=== PATIENT | male | born 1975 | race Caucasian/White ===

== ENCOUNTER 2018-09-23 21:23 | Observation (INO) | payer OTHER, SELFPAY ==
[2018-09-23 21:35] VITALS: BP 162/101; PULSE 87; RESP 18; TEMP 36.2; O2SAT 97
[2018-09-23 22:29] LABS: Alanine Aminotransferase 64 IU/L (21-72); Albumin 4.3 g/dL (3.5-5.0); Albumin Globulin Ratio 1.4 (1.0-2.8); Alkaline Phosphatase 56 U/L (38-126); Aspartate Aminotransferase 37 IU/L (17-59); BUN Creatinine Ratio 13.3 (6-22); Bilirubin Total 0.8 mg/dL (0.2-1.3); Blood Urea Nitrogen 12 mg/dL (9-20); Calcium 8.8 mg/dL (8.4-10.2); Carbon Dioxide 24 mmol/L (22-32); Chloride 104 mmol/L (98-107); Estimated Glomerular Filt Rate > 60.0 mL/min (>60); Glucose 93 mg/dL (70-100); HEMOLYSIS < 15 (0-50); Lipase 131 U/L (23-300); Potassium 3.8 mmol/L (3.4-5.1); Sodium 138 mmol/L (137-145); Total Protein 7.3 g/dL (6.3-8.2)
[2018-09-23 22:54] LABS: Add Manual Diff / Slide Review NO; Basophils Absolute Auto 100 /uL (0-100); Basophils Percent Auto 0.4 % (0-2); Eosinophils Absolute Auto 300 /uL (0-450); Eosinophils Percent Auto 2.3 % (2-4); Hematocrit 50.9 % (41-53); Hemoglobin 17.4 g/dL (13.5-17.5); Lymphocytes Absolute Auto 1800 /uL (1100-4500); Lymphocytes Percent Auto 13.9 % (25-40); Mean Corpuscular HGB Conc 34.3 % (30-36); Mean Corpuscular Hemoglobin 33.5 PG (26-34); Mean Corpuscular Volume 97.8 fL (80-100); Monocytes Absolute Auto 1000 /uL (0-900); Monocytes Percent Auto 7.3 % (3-14); Neutrophils Absolute Auto 10000 /uL (1500-7000); Neutrophils Percent Auto 76.1 % (50-75); Platelet Count 156 X10^3/uL (150-400); Red Cell Distribution Width 12.4 % (11.6-14.8); White Blood Cell Count 13.1 X10^3/uL (4.5-11.0)
[2018-09-23 23:57] VITALS: BP 156/89; PULSE 88; RESP 17; O2SAT 98
[2018-09-24] VITALS (15 sets, daily range): BP systolic 109–138; BP diastolic 66–92; PULSE 12–98; RESP 7–20; TEMP 36.6–37.9; O2SAT 91–100; BMI 28.8
--- NOTE | 2018-09-24 | PATH_ITS ---
[facility] Accession Number: [id number] . 01 Material submitted: . APPENDIX . 02 Diagnosis: Appendix, Laparoscopic Appendectomy: Acute appendicitis and serositis. MRV/09/27/2018 . 02 Electronically signed: . Nelly Lara MD, Pathologist NPI- [id number] . 01 Gross description: . Received in formalin, labeled appendix, is an intact appendix (length-4.3 cm, diameter-1.0 cm) with elena smooth shiny serosa, attached mesoappendix (up to 1.5 cm in depth) and an opened resection margin. The lumen contains clear colorless fluid. The wall is up to 0.5 cm thick. The tip appears to be perforated. No nodules, masses or lesions are identified. The resection margin is inked black. Section code: (A1) resection margin en face and three additional serial sections; (A2) one-half of the bivalved tip. ([id number]) /MRV . 02 Pathologist provided ICD-10: K35.80 . 02 CPT . 816491 Performed at: 01 [facility] [address] [place] [address], [place], [place] [id number] MD Antonino Guerra MD Phone: [phone] Performed at: 02 [facility] [address] [place], [place] [id number] MD Taryn Hernandez MD Phone: [phone]
[2018-09-24] MEDS: SODIUM CHLORIDE 0.9% 1,000 ML 150 ML IV ×2 (00:17→09:00)
--- NOTE | 2018-09-24 00:32 | DI.CT.S_ITS ---
PROCEDURE: CT ABDOMEN PELVIS W CON INDICATIONS: Right lower quadrant abdominal pain TECHNIQUE: After the administration of intravenous contrast, 5 mm thick sections acquired from the diaphragm to the symphysis. 5 mm coronal and sagittal reformats were acquired. For radiation dose reduction, the following was used: automated exposure control, adjustment of mA and/or kV according to patient size. COMPARISON: None. FINDINGS: Image quality: Excellent. ABDOMEN: Lung bases: Lung bases are clear. Heart size is normal. Solid organs: Liver is normal in size and enhancement. Gallbladder contains a 3 mm hyperdense focus which likely represents a small gallstone. No CT evidence for acute cholecystitis. Biliary system is non dilated. Pancreas enhances normally. Spleen is normal in size and enhancement. No adrenal nodules. Kidneys demonstrate normal size and enhancement, without hydronephrosis. A few small bilateral renal hypodensities are too small to accurately characterize but likely represent renal cysts. Peritoneum and bowel: Bowel loops demonstrate normal wall thickness and caliber. No free fluid or air. The appendix is dilated up to 12 mm in diameter with associated hyperemia/wall thickening and periappendiceal stranding. No evidence for perforation or abscess formation. Nodes and vessels: No retroperitoneal or mesenteric adenopathy by size criteria. Aorta and inferior vena cava are normal in size. Miscellaneous: No ventral hernias. PELVIS: Genitourinary: Bladder wall thickness is normal. Miscellaneous: No inguinal hernias or adenopathy. Bones: No suspicious bony lesions. No vertebral body compression fractures. IMPRESSION: 1. Acute appendicitis without complication. 2. Cholelithiasis without CT evidence for acute cholecystitis. Findings are concordant with preliminary radiology report. Acute findings were discussed with Nelly Meade M.D. on 09/24/2018 at 0129 hrs [place] standard time. Dictated by: Cristo Puente M.D. on 09/24/2018 at 8:02 Approved by: Cristo Puente M.D. on 09/24/2018 at 8:16
--- NOTE | 2018-09-24 00:35 | ED_ITS ---
HPI - Abdominal Pain General Chief Complaint: Abdominal Pain Stated Complaint: ABD BLOATING, CRAMPING, DIARRHEA Time Seen by Provider: 09/24/18 00:02 Source: patient Mode of arrival: ambulatory Limitations: no limitations History of Present Illness HPI narrative: Patient complains of right lower quadrant abdominal pain that has gone on throughout the day today. Patient states he has had intermittent diarrhea, well. Patient denies fevers. He denies nausea or vomiting. He states his appetite has been somewhat decreased. No urinary symptoms. No back pain. Patient is otherwise healthy except for hypertension, which he states is well controlled with medication. Patient has exposed to anybody else who has been sick. No complaints this. States his pain a 7 of. Movement makes it worse, and lying still makes it better. Patient has no history of appendectomy. No change in bowel habits. Related Data Home Medications Medication Instructions Recorded Confirmed lisinopril 20 mg PO DAILY 09/24/18 09/24/18 Allergies Allergy/AdvReac Type Severity Reaction Status Date / Time shellfish derived Allergy Hallucinati Verified 09/24/18 13:34 ng Review of Systems Constitutional Denies chills, Denies fever(s), Denies lethargy and Denies weakness Eyes Denies change in vision, Denies eye discharge, Denies irritation and Denies loss of vision ENT Ears, Nose, Mouth, and Throat: Denies change in voice, Denies neck pain and Denies sore throat Cardiovascular Denies chest pain, Denies irregular heart rhythm, Denies lightheadedness, Denies palpitations, Denies dyspnea, Denies dyspnea on exertion and Denies orthopnea Respiratory Denies cough, Denies dyspnea, Denies dyspnea on exertion and Denies wheezing Gastrointestinal Gastrointestinal: Reports abdominal pain ( Right lower quadrant), Denies change in bowel habits, Denies diarrhea, Denies nausea and Denies vomiting Genitourinary Denies hematuria, Denies flank pain, Denies urinary incontinence and Denies urinary urgency Musculoskeletal Denies neck pain Integumentary/Breasts Denies pruritus, Denies erythema, Denies rash and Denies wounds Neurologic Denies confusion, Denies loss of vision and Denies weakness Psychiatric Denies anxiety, Denies confusion, Denies depression, Denies homicidal ideation and Denies suicidal ideation Endocrine Denies palpitations Hematologic/Lymphatic Denies easy bruising Allergic/Immunologic Denies wheezing PFSH Medical History Gout (Chronic) Social History household members: none Smoking Status: Never smoker Social History household members: none Smoking Status: Never smoker Exam Initial Vital Signs Initial Vital Signs: Vital Signs Temperature 97.2 F L 09/23/18 21:35 Pulse Rate 87 09/23/18 21:35 Respiratory Rate 18 09/23/18 21:35 Blood Pressure 162/101 H 09/23/18 21:35 Pulse Oximetry 97 09/23/18 21:35 Const General: cooperative and well developed Nutritional Appearance: well nourished Orientation: alert, awake, oriented x3 and not confused HENMT Head: normocephalic and atraumatic Ears: external ears normal and TM's normal bilaterally Nose: external nose normal and No nasal discharge Face and sinus: sinuses nontender, face symmetric, no sinus tenderness and No dry mucous membranes Mouth: oral mucosae normal and moist mucous membranes Teeth and gingiva: dentition normal Throat: tonsils normal and uvula midline Eyes General: appearance normal, both eyes and all related structures Eyelids: eyelids normal Conjunctivae: conjunctivae normal Sclera: sclerae normal Pupils: PERRL EOM: EOM intact bilaterally Neck Neck: normal visual inspection, trachea midline, No lymphadenopathy, No midline deformity and No JVD Lymphatic: No lymphedema Chest Chest: normal inspection of the chest Resp Effort & Inspection: normal respiratory effort, able to speak in complete sentences, no respiratory distress and no use of accessory muscles Auscultation: clear to auscultation bilaterally, no rales, no rhonchi and no wheezes Cardio Rate: regular rate Rhythm: regular rhythm Heart Sounds: no click, no gallops, no murmurs and no rubs Pulses: normal peripheral pulses GI Inspection: non-distended Palpation: soft, no hepatosplenomegaly, No pulsatile mass and tender ( moderate, right lower quadrant, with voluntary guarding) Auscultation: normal bowel sounds Back/Spine/Pelvis Back: No CVA tenderness Cervical Spine: cervical ROM normal and No pain with cervical ROM Thoracic/Lumbar Spine: thoracic and lumbar spine normal to inspection Skin General: no rashes or lesions noted, No jaundice and No petechiae Neuro General: alert, oriented x3, gait normal and no focal motor deficits Speech: speech normal Extrem General: full ROM, no clubbing, cyanosis or edema, no pedal edema and no calf tenderness Psych Appearance: well kempt Mental Status: mental status grossly normal Attitude: cooperative Thought Content: normal and suicidality Judgment: judgment good Course Course Narrative: I was concerned about appendicitis in this patient, and I felt he should be worked up for this. Labs and CT scan of the abdomen and pelvis were done. Patient was found have a mildly elevated white blood cell count 13, and CT scan was positive for acute appendicitis without rupture. I spoke with Dr. Mchugh was on-call for surgery, and she agreed to admit the patient to her service. I did write transitional orders. Orders Ordered: Acetaminophen (Tylenol) 325 mg PO NOW PRN PRN Reason: Pain, Mild (1-3) Albuterol (Ventolin) 2.5 mg INH NOW PRN PRN Reason: Coughing, Wheezing, Dyspnea Fentanyl (Sublimaze) 50 mcg IV Q5MIN PRN PRN Reason: Pain, Moderate (4-6) Hydromorphone HCl (Dilaudid) 2 mg IV Q4HR PRN PRN Reason: Pain, Moderate (4-6) Last Admin: 09/24/18 12:17 Dose: 2 mg Admin: 09/24/18 08:04 Dose: 2 mg Admin: 09/24/18 03:28 Dose: 2 mg Hydromorphone HCl (Dilaudid) 0.5 mg IV Q5MIN PRN PRN Reason: Pain, Moderate (4-6) Sodium Chloride (Normal Saline 0.9%) 1,000 mls @ 150 mls/hr IV CONT KIMANI Last Admin: 09/24/18 09:00 Dose: 150 mls/hr Infusion: 09/24/18 01:31 Dose: 0 mls/hr Admin: 09/24/18 00:17 Dose: 150 mls/hr Cefotetan Disodium/Dextrose (Cefotan) 2 gm in 50 mls @ 100 mls/hr IV PREOP KIMANI Last Infusion: 09/24/18 15:13 Dose: 0 mls/hr Admin: 09/24/18 15:03 Dose: 100 mls/hr Metronidazole (Flagyl) 500 mg in 100 mls @ 100 mls/hr IV PREOP KIMANI Last Infusion: 09/24/18 15:01 Dose: 0 mls/hr Admin: 09/24/18 14:49 Dose: 100 mls/hr Lactated Ringer's (Lactated Ringers) 1,000 mls @ 42 mls/hr IV CONT KIMANI Last Admin: 09/24/18 14:15 Dose: 42 mls/hr Lorazepam (Ativan) 0.25 mg IV NOW PRN PRN Reason: Anxiety Metoclopramide HCl (Reglan) 10 mg IV NOW PRN PRN Reason: Nausea And Vomiting Ondansetron HCl (Zofran) 4 mg IV NOW PRN PRN Reason: Nausea And Vomiting Oxycodone/Acetaminophen (Percocet 5/325) 1 tab PO Q30MIN PRN PRN Reason: Mild or moderate pain Discontinued Medications Bupivacaine HCl (Sensorcaine 0.5% (Pf)) 30 ml INJ NOW ONE Stop: 09/24/18 15:23 Last Admin: 09/24/18 15:22 Dose: 12 ml Cefotetan Disodium/Dextrose (Cefotan) 2 gm in 50 mls @ 100 mls/hr IV NOW ONE Stop: 09/24/18 02:29 Last Infusion: 09/24/18 03:08 Dose: 0 mls/hr Admin: 09/24/18 02:15 Dose: 100 mls/hr Vital Signs - 8 hr 09/24/18 08:00 09/24/18 13:41 Temperature 98.9 F 100.3 F H Pulse Rate 82 91 H Respiratory Rate 16 16 Blood Pressure 127/77 138/83 Pulse Oximetry 96 94 MDM - Abdominal Pain Medical Records Attestation: I reviewed the patient's medical records. Lab Data Attestation: I reviewed the patient's lab results. Result diagrams: 09/23/18 22:06 09/23/18 22:06 Lab Results 09/23/18 09/23/18 Range/Units 22:06 22:06 WBC 13.1 H (4.5-11.0) X10^3/uL RBC 5.20 (4.5-5.9) X10^6/uL Hgb 17.4 (13.5-17.5) g/dL Hct 50.9 (41-53) % MCV 97.8 (80-100) fL MCH 33.5 (26-34) PG MCHC 34.3 (30-36) % RDW 12.4 (11.6-14.8) % Plt Count 156 (150-400) X10^3/uL Neut % (Auto) 76.1 H (50-75) % Lymph % (Auto) 13.9 L (25-40) % [place] % (Auto) 7.3 (3-14) % Eos % (Auto) 2.3 (2-4) % Baso % (Auto) 0.4 (0-2) % Neut # (Auto) 40799 H (2474-8808) /uL Lymph # (Auto) 1800 (2356-7428) /uL [place] # (Auto) 1000 H (0-900) /uL Eos # (Auto) 300 (0-450) /uL Baso # (Auto) 100 (0-100) /uL Sodium 138 (137-145) mmol/L Potassium 3.8 (3.4-5.1) mmol/L Chloride 104 (98-107) mmol/L Carbon Dioxide 24 (22-32) mmol/L BUN 12 (9-20) mg/dL Creatinine 0.90 (0.66-1.25) mg/dL Estimated GFR > 60.0 (>60) mL/min BUN/Creatinine Ratio 13.3 (6-22) Glucose 93 (70-100) mg/dL Calcium 8.8 (8.4-10.2) mg/dL Total Bilirubin 0.8 (0.2-1.3) mg/dL AST 37 (17-59) IU/L ALT 64 (21-72) IU/L Alkaline Phosphatase 56 (38-126) U/L Total Protein 7.3 (6.3-8.2) g/dL Albumin 4.3 (3.5-5.0) g/dL Globulin 3.0 (1.7-4.1) g/dL Albumin/Globulin Ratio 1.4 (1.0-2.8) Lipase 131 (23-300) U/L Point of care testing: Urine Dip Bedside Urine Glucose Negative Bedside Urine Bilirubin - Negative Bedside Urine Ketone - Negative Urine Specific [place] 1.010 Bedside Urine Occult Blood - Negative Bedside Urine pH 6.5 Bedside Urine Protein - Negative Bedside Urine Urobilinogen - Negative Bedside Urine Nitrite - Negative Bedside Urine Leukocytes - Negative Esterase Imaging Data CT scan - abdomen: Radiologist's impression: PROCEDURE: CT ABDOMEN PELVIS W CON INDICATIONS: Right lower quadrant abdominal pain TECHNIQUE: After the administration of intravenous contrast, 5 mm thick sections acquired from the diaphragm to the symphysis. 5 mm coronal and sagittal reformats were acquired. For radiation dose reduction, the following was used: automated exposure control, adjustment of mA and/or kV according to patient size. COMPARISON: None. FINDINGS: Image quality: Excellent. ABDOMEN: Lung bases: Lung bases are clear. Heart size is normal. Solid organs: Liver is normal in size and enhancement. Gallbladder contains a 3 mm hyperdense focus which likely represents a small gallstone. No CT evidence for acute cholecystitis. Biliary system is non dilated. Pancreas enhances normally. Spleen is normal in size and enhancement. No adrenal nodules. Kidneys demonstrate normal size and enhancement, without hydronephrosis. A few small bilateral renal hypodensities are too small to accurately characterize but likely represent renal cysts. Peritoneum and bowel: Bowel loops demonstrate normal wall thickness and caliber. No free fluid or air. The appendix is dilated up to 12 mm in diameter with associated hyperemia/wall thickening and periappendiceal stranding. No evidence for perfora tion or abscess formation. Nodes and vessels: No retroperitoneal or mesenteric adenopathy by size criteria. Aorta and inferior vena cava are normal in size. Miscellaneous: No ventral hernias. PELVIS: Genitourinary: Bladder wall thickness is normal. Miscellaneous: No inguinal hernias or adenopathy. Bones: No suspicious bony lesions. No vertebral body compression fractures. IMPRESSION: 1. Acute appendicitis without complication. 2. Cholelithiasis without CT evidence for acute cholecystitis. Findings are concordant with preliminary radiology report. Acute findings were discussed with Nelly Meade M.D. on 09/24/2018 at 0129 hrs [place] standard time. Dictated by: Cristo Puente M.D. on 09/24/2018 at 8:02 Approved by: Cristo Puente M.D. on 09/24/2018 at 8:16 Discharge Plan Departure Patient Disposition: Admitted As Inpatient Clinical Impression: Acute appendicitis Discharge Date/Time: 09/24/18 02:24 Interventions: ED Discharge Assessment Last Done: 09/24/18 02:21 Admit Date/Time: 09/24/18 02:00 Admit Provider: Beatris Mchugh
[2018-09-24] MEDS: CEFOTETAN 2 GM/50 ML PIGGYBACK IV ×2 (02:15→15:03)
--- NOTE | 2018-09-24 03:18 | PC.NURSE ---
Pt arrived on unit A and O x 4, VSS, afebrile, rating pain 8/10 R lower quadrant. Requested pain med from ER MD, fair results from hydromorphone 2 mg IVP. Pt is calm and cooperative. NPO.
[2018-09-24] MEDS: HYDROMORPHONE 2 MG INJ IV ×3 (03:28→12:17)
--- NOTE | 2018-09-24 12:33 | PC.NURSE ---
Pending surgery: NPO status explained and maintained. IVF started per orders. Tele on and has remained in sr. Has voided this am but he doesn't like to move. Pain 8/10 at rest and 10/10 when he moves, w/dilaudid 2mg pain decreases to a 4-5/10. Surgery planned for 1414 and pt is aware and he contacted joyce about same. Cont pulse ox on and sats have remained at 97% or greater. Pt is a non smoker. The surgeon will speak with pt downstairs about the procedure. Cont w/poc.
--- NOTE | 2018-09-24 13:31 | P.HP_ITS ---
History of Present Illness Date Patient Seen: 09/24/18 Time Patient Seen: 13:24 Chief complaint: ABD BLOATING, CRAMPING, DIARRHEA Narrative: The patient is a gentleman who was admitted through the night with a 1 day history of right lower quadrant pain. He has never had this pain before. He has been anorexic but not vomiting. He has no dysuria. Difficult to tell if the pain has worsened because he has been taking pain medicine at home. Pain is a bit increased with movement. No prior colonoscopies. Patient History Medical History Gout (Chronic) Social History household members: none Smoking Status: Never smoker Family & Social History Social History: household members none Prior Living Arrangements House Safety & Behavioral: Feels Safe in Current Yes Environment Been Physically Hurt or No Threatened By a Person Suicidal Ideation Description None Suicide Plan Description No Plan Tobacco & Substance use: Smoking Status Never smoker alcohol intake frequency holiday/special occasion Substance Use Type does not use Meds Home Medications Medication Instructions Recorded Confirmed Type lisinopril 20 mg PO DAILY 09/24/18 09/24/18 History Allergies Allergy/AdvReac Type Severity Reaction Status Date / Time No Known Drug Allergies Allergy Verified 09/23/18 21:38 Review of Systems Review of Systems Patient denies any double vision or pain in his eyes. He wears glasses. No trouble with earache sore throats no trouble swallowing no tooth aches. He has had wisdom teeth out. No problems with breathing cough cold asthma. No chest pain heart problems or murmurs. No black or bloody bowel movements. No dysuria or hematuria. Sometimes his urine flow is little slow and sometimes he gets up at night to urinate. No seizures or blackouts. No numbness or tingling. No unusual bruising or bleeding. No psychiatric illnesses no problems with his thyroid pancreas he is aware of. Exam Vital Signs (past 8 hours): - 09/24/18 08:00 Temperature 98.9 F Pulse Rate 82 Respiratory Rate 16 Blood Pressure 127/77 Pulse Oximetry 96 Oxygen Delivery Method Room Air Narrative Exam Narrative: Operative gentleman in no apparent distress. His eyes are nonicteric. Pupils small equal round reactive to light. Conjunctivae are pink. Ears he has holes in both ear lobes from earrings. No ear rings are in at this time. No other lesions. Nasal septum is midline. Oral mucosa is pink and moist he has large tonsils which he says are chronic. No open lesions of the mouth or pharynx. His neck is supple. There are no nodes in the neck or supraclavicular areas. Trachea is midline mobile. Thyroid is not enlarged. Lungs are clear to auscultation without rales or rhonchi. Heart regular rate and rhythm without murmur gallop. No heave lift or thrill. No bruit in the neck. Lungs percuss equally bilaterally. Abdomen is mildly protuberant and soft. There is localized tenderness with voluntary guarding the right lower quadrant. Testes without mass penis is without lesion. He may have a small right inguinal hernia. The patient's extremities without cyanosis clubbing edema or deformity. He has 2+ tibialis posterior pulses bilaterally. He has a 1+ dorsalis pedis on the left and 2+ on the right. He is alert and oriented x3. Speech rate and content are appropriate affect is appropriate. He is covered in tattoos. No open skin lesions. Objective Labs Result Diagrams: 09/23/18 22:06 09/23/18 22:06 Labs: Laboratory Results - last 24 hr 09/23/18 09/23/18 22:06 22:06 WBC 13.1 H RBC 5.20 Hgb 17.4 Hct 50.9 MCV 97.8 MCH 33.5 MCHC 34.3 RDW 12.4 Plt Count 156 Neut % (Auto) 76.1 H Lymph % (Auto) 13.9 L [place] % (Auto) 7.3 Eos % (Auto) 2.3 Baso % (Auto) 0.4 Neut # (Auto) 15671 H Lymph # (Auto) 1800 [place] # (Auto) 1000 H Eos # (Auto) 300 Baso # (Auto) 100 Sodium 138 Potassium 3.8 Chloride 104 Carbon Dioxide 24 BUN 12 Creatinine 0.90 Estimated GFR > 60.0 BUN/Creatinine Ratio 13.3 Glucose 93 Calcium 8.8 Total Bilirubin 0.8 AST 37 ALT 64 Alkaline Phosphatase 56 Total Protein 7.3 Albumin 4.3 Globulin 3.0 Albumin/Globulin Ratio 1.4 Lipase 131 Assessment & Plan Assessment & Plan narrative: Patient with a classic history physical exam lab findings and a CT scan consistent with acute appendicitis. He also has evidence of gallstones. They are not involved in this process however. I have discussed laparoscopic appendectomy with him I may repair and umbilical hernia if 1 is found. I suspect he may have a small 1. Risks of bleeding, infection , abscess, hernia, possible use of a drain all discussed with him. He appears to understand and wishes to proceed.
[2018-09-24] MEDS: LACTATED RINGERS 1,000 ML 42 ML IV (14:15)
[2018-09-24] MEDS: metroNIDAZOLE 500 MG/100 ML PIGGYBACK 100 MG IV (14:49)
--- NOTE | 2018-09-24 15:04 | CM.IDA ---
Discharge Planning/Care Management CM Discharge Assessment Start: 09/24/18 14:58 Freq: Status: Active Protocol: Document 09/24/18 14:58 JOVON (Rec: 09/24/18 15:04 JOVON [id number]) Discharge Planning Assessment Assigned Rental Manager DONALD Armendariz DPOA/Assigned Designee Name Anna Cruz, ex spouse (?)/ friend Contact Information [phone] Advance Directives? No Advance Directives on File No History Provided By Patient Medical Record Prior Living Arrangements House Household Members none Type of transporation used prior to Drives own vehicle admit Comment Works for [employer] Independent with ADL's Yes Is patient alert and oriented? Yes Barriers to Discharge No Comment Pt under observation for acute appendicitis, taken to the OR today for Appy. Payer: Camilla. Reviewed chart. Pt off floor for surgery today w/ Dr Wetzel. Pt indp at baseline, no barriers to safe return home w /family to assist are expected once medically stable. Likely w/in 24 hrs. P: Home w/family when stable. [employer] team will remain available in case Dc needs or concerns arise. DONALD Santos Discharge Plan Home Transportation Arrangement Family Additional Comment Likely none needed. Pt off floor for surgery today. Review Status In Process
--- NOTE | 2018-09-24 15:16 | SUR.OPER ---
Supine on padded OR bed, head on pillow, arm padded and tucked at side, legs uncrossed, safety belt at thigh, tape over blanket over lower legs .
[2018-09-24] MEDS: BUPIVACAINE 0.5% (PF) VIAL 30 ML INJ (15:22)
--- NOTE | 2018-09-24 16:38 | SUR.PHASEI ---
Drowsy, arouses intermittently, tolerating po well. Pain 6/10, will accept Rx after consideration. Report called to floor.
[2018-09-24] MEDS: fentaNYL 100 MCG/2 ML INJ 50 MCG IV (16:41)
--- NOTE | 2018-09-24 16:49 | SUR.PHASEI ---
Report to Jose Bonilla RN
--- NOTE | 2018-09-24 16:52 | SUR.PHASEI ---
Assumed care of pt. VSS, 3L NC, pt appears relaxed and is sleeping, PIV at TKO. When asked about pain pt states that whil relaxing his pain is 0\10 but a bit sore if he tries to move.
[2018-09-24] MEDS: HYDROCODONE/ACET 5/325 TABLET 2 TAB PO (17:29)
[2018-09-24] MEDS: DEXTROSE 5%-0.45% NS 1,000 ML 125 ML IV (17:30)
--- NOTE | 2018-09-24 18:27 | PC.NURSE ---
Evening Shift Note- Patient arrived back to room from PACU at 1710. Patient alert and oriented and able to make needs known to staff. Patient reports pain level at 6/10. PRN vicodin given as ordered per patient request. Patient tolerated with no s/s of ASE noted. No complaints of n/v. Patient tolerated dinner with no issues noted. Safety measures in place. patient agrees to call for assistance as needed. Call justice and phone within reach. Will continue to monitor.
[2018-09-24] MEDS: MORPHINE 4 MG/ML INJ IV ×2 (19:07→22:56)
--- NOTE | 2018-09-24 19:08 | PM.PREOP ---
Pre-operative Note Interval Note History & Physical reviewed/Exam performed by Physician: Yes Changes to H&P: No H&P completed within 30 days and has changed as indicated here:: exam reviewed before patient moved into the operating room
--- NOTE | 2018-09-24 19:09 | PM.OP.1 ---
Operative Date/Time/Diagnoses Date of procedure: 09/24/18 Time of procedure: 18:00 Pre-op diagnosis: Acute appendicitis Post-op diagnosis: same Procedure & Clinicians Procedure: Laparoscopic appendectomy Same procedure as scheduled: Yes Indications: History physical and CT consistent with acute appendicitis Surgeon: Abraham Wetzel Click Yes if Unassisted: Yes Anesthesia Type: General Operative Notes Findings: Acute appendicitis. No evidence perforation. Closure Type: primary Specimen(s): other (Appendix) Estimated Blood Loss (mL): 5 Blood products transfused: none Procedure in detail: The patient was placed supine on the operating room table and underwent general endotracheal anesthesia. He was prepped and draped in the usual fashion. Local anesthetic was infiltrated at the infraumbilical fold incision made transversely across it. It was carried down to the level the fascia. The fascia was opened up under direct vision as was the peritoneum. Stay sutures of 0 Vicryl were placed in the fascia. A cannula was inserted and the abdomen was insufflated. Two additional ports were placed. One was placed between the pubis and the umbilicus and 1 in left lower quadrant. The appendix was identified is a thickened inflamed structure. The base appeared healthy. I divided the mesoappendix with cautery and Metzenbaum scissors. The base was cleared and a 0 PDS loop was placed at the base of the appendix and cinched down. The appendix will was crushed across its entire with with a clamp distal to this loop. The appendix was transected between the loops and the clamp and the mucosa cauterized. The appendix was immediately placed in a bag and removed without spillage. On the right abdomen and pelvis was irrigated and suctioned free of fluid. Meticulous hemostasis was achieved. The S were all removed. The stay sutures at the umbilicus were tied and additional 2 0 PDS was placed between the 2 Vicryl sutures. The skin was closed in all areas with a 4 0 Vicryl subcuticular stitch and Steri-Strips. Band-aids were applied the patient was awakened extubated taken recovery room good condition Complications: none Condition: stable Disposition: PACU
[2018-09-24] MEDS: KETOROLAC 30 MG/ML VIAL IV (21:24)
[2018-09-24] MEDS: ENOXAPARIN 40 MG/0.4 ML SYRINGE SUBCUT (21:25)
[2018-09-24] MEDS: GABAPENTIN 300 MG CAPSULE PO (21:26)
[2018-09-25 00:38] VITALS: BP 107/62; PULSE 72; RESP 20; TEMP 36.5; O2SAT 95
[2018-09-25] MEDS: DEXTROSE 5%-0.45% NS 1,000 ML 125 ML IV ×2 (01:23→09:15)
[2018-09-25 03:25] VITALS: BP 105/72; PULSE 70; RESP 20; TEMP 36.4; O2SAT 96
[2018-09-25] MEDS: KETOROLAC 30 MG/ML VIAL IV ×2 (03:32→09:16)
[2018-09-25] MEDS: MORPHINE 4 MG/ML INJ IV ×2 (03:33→09:12)
--- NOTE | 2018-09-25 06:04 | PC.NURSE ---
Pt gets adequate pain relief from 4 mg IVP MS and 30 mg IVP ketoralc and is breathing > 95 % on RA. He has ambulated several times to BR to void. Lap sites C/D/I. Able to sleep all shift.
[2018-09-25 07:15] VITALS: BP 105/54; PULSE 65; RESP 20; TEMP 36.6; O2SAT 97
[2018-09-25] MEDS: HYDROCODONE/ACET 5/325 TABLET 2 TAB PO ×2 (07:30→13:00)
[2018-09-25] MEDS: GABAPENTIN 300 MG CAPSULE PO (08:28)
[2018-09-25] MEDS: ENOXAPARIN 40 MG/0.4 ML SYRINGE SUBCUT (08:49)
--- NOTE | 2018-09-25 09:23 | PM.DS.1 ---
History of Present Illness Chief complaint: ABD BLOATING, CRAMPING, DIARRHEA Narrative: The patient is a gentleman who was admitted through the night with a 1 day history of right lower quadrant pain. He has never had this pain before. He has been anorexic but not vomiting. He has no dysuria. Difficult to tell if the pain has worsened because he has been taking pain medicine at home. Pain is a bit increased with movement. No prior colonoscopies. Discharge Providers Date of admission: 09/24/18 02:00 Discharge Date: 09/25/18 Primary care physician: Rodrigo Pierce MD Consults: 09/24/18 17:15 Consult to Discharge Planning Routine Comment: Discharge provider: Abraham Wetzel MD Summary Discharge Diagnosis: Acute appendicitis Hypertension chronic Hospital Course: Patient was taken to the operating room and underwent a laparoscopic appendectomy for acute appendicitis. His postoperative course was smooth. He was discharged to follow up in the office. Status at Discharge Cognitive/behavioral status at discharge: oriented Functional status at discharge: independent ambulation Overall status at discharge: patient is progressing back to baseline Exam Vital Signs (past 8 hours): - 09/25/18 03:25 09/25/18 07:15 Temperature 97.5 F L 97.8 F Pulse Rate 70 65 Respiratory Rate 20 20 Blood Pressure 105/72 105/54 L Pulse Oximetry 96 97 Oxygen Delivery Method Room Air Oxygen Flow Rate 1 Narrative Exam Narrative: Co Operative in no apparent distress. Lungs are clear to auscultation. No rales or rhonchi. Heart regular rate and rhythm without murmur gallop. Abdomen is soft. Marked improvement in tenderness in the right lower quadrant. Band-aids are intact. Objective Labs Result Diagrams: 09/23/18 22:06 09/23/18 22:06 Discharge Plan Discharge Plan Patient Disposition: Home Discharge Med Rec/Prescriptions Prescriptions: New ibuprofen 600 mg tablet 600 mg PO TID-QID PRN (Reason: pain) Qty: 20 RF: 0 oxycodone 5 mg tablet See Rx Instructions .ROUTE .COMPLEX PRN (Reason: pain) Qty: 20 RF: 0 Continued lisinopril 20 mg tablet 20 mg PO DAILY RF: 0 Follow up/Referrals: Abraham Wetzel MD [Physician] - 2 Weeks (Call for an appointment to see me in 8-14 days. If you need to reach a doctor after hours call the office and hold until the paging mimeograph operator picks up ) Rodrigo Pierce MD [Primary Care Provider] - Provider Discharge Instructions Diet: Diet as Tolerated Activity: You may walk. Do not lift over 10 lb for 4 weeks. Do not strain. Do not drive until your pain free off medication. No pool or tub for 2 weeks. Skin/Wound/Dressing Care Report to your healthcare provider any signs of infection, such as:: chills, fever, night sweats, increased pain, unusual drainage and unusual redness Dressing: You may remove the Band-Aids tomorrow and shower. Leave the tape under the Band-Aids fall off on its own Visit Report/Discharge Packet Instructions: DI for an Appendectomy, DI for Laparoscopy Stand Alone Forms: Surgery Discharge Discharge Data Primary Care Provider: Rodrigo Pierce Attending Provider: Beatris Mchugh Admit Date/Time: 09/24/18 02:00
[2018-09-25 09:54] VITALS: O2SAT 97
[2018-09-25 11:05] VITALS: BP 119/69; PULSE 64; RESP 20; TEMP 36.9; O2SAT 92
--- NOTE | 2018-09-25 13:04 | PC.NURSE ---
Day shift: Left unit via WC at approx 1300. Going to private car and his friends will drive him home. Paperwork signed and all questions answered. Pt has MD scrips and all personal belongings.
== END 2018-09-25 13:06 | disposition home or self-care (01) ==
LOC: ED 09-24 00:02 → AC 09-24 02:01
PROVIDERS: Specialist; Admitting Provider Surgery; Emergency Provider Emergency Medicine; Family Provider Family Medicine; PCP Family Medicine; Visit Provider Surgery
PROC: 0DTJ4ZZ Resection of Appendix, Percutaneous Endoscopic Approach (ICD-10-PCS; CPT 44970; principal; 2018-09-24 14:15)
DX: K35.80 Unspecified acute appendicitis (principal); R10.31 Right lower quadrant pain; K80.20 Calculus of gallbladder without cholecystitis without obstruction
CPT/HCPCS: 44970; 36415; 74177; 80053; 81003; 83690; 85025; 94760; 96360; 99219; 99283; 99285; G0378; J1100; J1170; J1650; J1885; J2250; J2270; J2405; J2704; J3010; Q9967

== ENCOUNTER 2023-08-20 23:41 | Emergency (ER) | payer OTHER, SELFPAY ==
[2018-10-12 13:06] VITALS: BMI 28.8
[2023-08-20 23:47] VITALS: BP 174/79; PULSE 119; RESP 24; TEMP 36.9; O2SAT 98; BMI 29.5
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
[2023-08-21] MEDS: ACETAMINOPHEN 325 MG TABLET 975 MG PO (02:10)
[2023-08-21 02:40] VITALS: BP 107/76; PULSE 113; RESP 20; TEMP 36.9; O2SAT 94
== END 2023-08-21 02:40 | disposition home or self-care (01) ==
PROVIDERS: Emergency Provider Emergency Medicine; Family Provider Family Medicine; PCP Family Medicine
DX: S06.0XAA Concussion with loss of consciousness status unknown, initial encounter (principal); S01.01XA Laceration without foreign body of scalp, initial encounter; I10 Essential (primary) hypertension; F10.920 Alcohol use, unspecified with intoxication, uncomplicated; Y00.XXXA Assault by blunt object, initial encounter
CPT/HCPCS: 12002; 70450; 72125; 93005; 93010; 99283; 99291